=== PATIENT | male | born 1975 | race Caucasian/White ===

== ENCOUNTER 2023-08-15 09:25 | Outpatient (CLI) | payer OTHER, SELFPAY ==
--- NOTE | ~2023-08-15 | MR_ITS ---
MRI of the cervical spine Clinical History: Kyphosis, arm numbness Technique: Axial T2-weighted and gradient images, and sagittal T1-weighted, T2-weighted, and STIR mayi ges were acquired. Following intravenous administration of 20 cc MultiHance gadolinium, T1-weighted f at-sat imaging was performed in the axial and sagittal planes. Findings: No acute fracture or subluxation seen. There is mild reversal normal cervical lordosis. The re is anterior and interbody fusion extending from C4 through C7, with associated mild anterior susce ptibility artifact. No suspicious bone marrow signal abnormality seen. At C2-C3, there is minimal disc bulge. There is minimal canal stenosis without roma cord compression . Bilateral neural foramina are intact. At C3-C4, there is minimal disc bulge. There is mild canal stenosis and possible minimal flattening t he ventral cord. There is bilateral neural foraminal narrowing. At C4-C5, there is central disc protrusion. There is mild to moderate canal stenosis and mild ventral cord compression. Bilateral neural foramina are narrowed, right worse than left. At C5-C6, there is moderate to severe canal stenosis with associated moderate cord compression and fo ephraim posterior disc osteophyte complex. There is probable bilateral neural foraminal narrowing. At C6-C7, there is moderate canal stenosis and probable mild to moderate cord compression. Probable m ild left neural foraminal narrowing. Right neural foramen preserved. Possible mild chondromalacia changes of the spinal cord at the C6-C7 levels. Paravertebral soft tissu es are unremarkable. No abnormal postcontrast enhancement identified. Impression: Moderate to advanced degenerative spondylosis, with anterior fusion from C4 through C7. Probable chronic changes of myelomalacia of the spinal cord at the C6-C7 levels, with relatively smal l caliber cord and possible minimal increased cord signal. Reviewed, dictated and finalized at location M. Impression: Moderate to advanced degenerative spondylosis, with anterior fusion from C4 thr ough C7. Probable chronic changes of myelomalacia of the spinal cord at the C6-C7 levels , with relatively small caliber cord and possible minimal increased cord signal .
== END 2023-08-15 09:26 | disposition home or self-care (01) ==
PROVIDERS: Visit Provider Internal Medicine
DX: M47.892 Other spondylosis, cervical region (principal); M43.22 Fusion of spine, cervical region; M40.292 Other kyphosis, cervical region
CPT/HCPCS: 72156; A9577

== ENCOUNTER 2023-10-31 13:21 | Outpatient (CLI) | payer OTHER, SELFPAY ==
--- NOTE | 2023-10-31 14:30 | NEURO_ITS ---
Impression: # Complains of numbness of hands. Non-diabetic. History of neck surgery as well. # Bilateral moderate Carpal Tunnel Syndrome. # Right ulnar neuropathy across the elbow. 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 Nerve Conduction Studies Anti Sensory Summary Table Stim Site NR Peak (ms) P-T Amp (?V) Site1 Site2 Delta-P (ms) Dist (cm) Bernardino (m/s) Left Median Anti Sensory (2-3nd Digit) Wrist 5.2 12.7 Wrist 2-3nd Digit 5.2 14.0 27 Wrist 5.9 12.0 Wrist 2-3nd Digit 5.2 14.0 27 Right Median Anti Sensory (2-3nd Digit) Wrist 5.5 27.8 Wrist 2-3nd Digit 5.5 14.0 25 Wrist 5.1 16.1 Wrist 2-3nd Digit 5.5 14.0 25 Left Radial Anti Sensory (Base 1st Digit) Wrist 1.8 24.4 Wrist Base 1st Digit 1.8 0.0 Right Radial Anti Sensory (Base 1st Digit) Wrist 2.3 4.6 Wrist Base 1st Digit 2.3 0.0 Left Ulnar Anti Sensory (5th Digit) Wrist 2.5 64.2 Wrist 5th Digit 2.5 14.0 56 Right Ulnar Anti Sensory (5th Digit) Wrist 2.4 29.8 Wrist 5th Digit 2.4 14.0 58 Motor Summary Table Stim Site NR Onset (ms) O-P Amp (mV) Site1 Site2 Delta-0 (ms) Dist (cm) Bernardino (m/s) Left Median Motor (Abd Poll Brev) Wrist 5.0 1.1 Elbow Wrist 5.2 30.0 58 Elbow 10.2 0.5 Right Median Motor (Abd Poll Brev) Wrist 5.5 0.8 Elbow Wrist 5.4 31.0 57 Elbow 10.9 0.9 Left Ulnar Motor (Abd Dig Minimi) Wrist 2.7 5.0 A Elbow Wrist 5.5 32.0 58 A Elbow 8.2 3.4 Right Ulnar Motor (Abd Dig Minimi) Wrist 3.0 3.4 A Elbow Wrist 6.5 32.0 49 A Elbow 9.5 2.2 B Elbow Wrist 4.1 21.0 51 B Elbow 7.1 1.2 F Wave Studies NR F-Lat (ms) L-R F-Lat (ms) Left Median (Mrkrs) (Abd Poll Brev) 32.51 1.17 Right Median (Mrkrs) (Abd Poll Brev) 31.35 1.17 Left Ulnar (Mrkrs) (Abd Dig Min) 31.84 0.76 Right Ulnar (Mrkrs) (Abd Dig Min) 31.08 0.76 EMG Side Muscle Nerve Root Ins Act Fibs Amp Dur Recrt Comment Right 1stDorInt Ulnar C8-T1 Nml Nml Nml Nml Nml Right Ext Indicis Radial (Post Int) C7-8 Nml Nml Nml Nml Nml Right Ext Digitorum Radial (Post Int) C7-8 Nml Nml Nml Nml Nml Right BrachioRad Radial C5-6 Nml Nml Nml Nml Nml Right PronatorTeres Median C6-7 Nml Nml Nml Nml Nml Right Abd Poll Brev Median C8-T1 Nml Nml Incr >12ms +2 Right ABD Dig Min Ulnar C8-T1 Nml Nml Nml Nml +2 Left 1stDorInt Ulnar C8-T1 Nml Nml Nml Nml Nml Left Ext Indicis Radial (Post Int) C7-8 Nml Nml Incr >12ms +1 Left Ext Digitorum Radial (Post Int) C7-8 Nml Nml Nml Nml Nml Left BrachioRad Radial C5-6 Nml Nml Incr >12ms +1 Left PronatorTeres Median C6-7 Nml Nml Nml Nml Nml Left Abd Poll Brev Median C8-T1 Nml Nml Incr >12ms +2 Left ABD Dig Min Ulnar C8-T1 Nml Nml Nml Nml +2 Left Biceps Musculocut C5-6 Nml Nml Incr >12ms +1 Left Triceps Radial C6-7-8 Nml Nml Incr >12ms +1 Left Deltoid Axillary C5-6 Nml Nml Incr >12ms +1 MTDD
== END 2023-10-31 13:22 | disposition home or self-care (01) ==
LOC: ANHNEURO 13:29
PROVIDERS: Visit Provider Internal Medicine
DX: G56.03 Carpal tunnel syndrome, bilateral upper limbs (principal); G56.21 Lesion of ulnar nerve, right upper limb
CPT/HCPCS: 95886; 95911